=== PATIENT | female | born 1935 | race Caucasian/White ===

== ENCOUNTER 2016-12-12 08:48 | Outpatient (CLI) | payer MEDICARE, OTHER ==
[2015-12-10 12:56] VITALS: BMI 18.9
[~2016-12-12 08:48] MED LIST: ALEVE220 MG PO; BAYER CHEWABLE81 MG PO; BETAPACE 80 MG80 MG PO; CALCIUM 600+D T1 TA1 PO; FLUTICASONE PRO16 GM NASAL; K-TAB10 MEQ PO; LASIX20 MG PO; MEGESTROL PO; MUCINEX600 MG PO; NEURONTIN 300300 MG PO; OXYCODONE HCL5 MG PO; TIROSINT88 MCG PO; TOPROL XL100 MG PO; TRAZODONE HCL50 MG PO
== END 2016-12-12 11:28 ==
LOC: D.MAMMO 08:48
DX: Z12.31 Encounter for screening mammogram for malignant neoplasm of breast (principal)

== ENCOUNTER → 2017-01-23 16:55 | Outpatient (CLI) | payer MEDICARE, OTHER ==
[2015-12-10 12:56] VITALS: BMI 18.9
== END | disposition home or self-care (01) ==
LOC: D.MAMMO 14:00
DX: R92.8 Other abnormal and inconclusive findings on diagnostic imaging of breast (principal)